=== PATIENT | female | born 1980 | race Caucasian/White ===

== ENCOUNTER 2018-01-29 06:00 | Inpatient (IN) | payer BC ==
[2018-01-29] MEDS ORDERED: TERBUTALINE SULFATE 1 MG/ML VIAL IV PRN (07:36)
[2018-01-29] MEDS ORDERED: LR 500 ML IV PRN (07:36)
[2018-01-29] MEDS ORDERED: MISOPROSTOL 200 MCG TAB PO PRN (07:36)
[2018-01-29] MEDS ORDERED: LR 1,000 ML IV PRN (07:36)
[2018-01-29] MEDS ORDERED: IBUPROFEN 600 MG TAB PO PRN (07:36)
[2018-01-29] MEDS ORDERED: OLIVE OIL 118 ML BTL MISC PRN (07:36)
[2018-01-29] MEDS ORDERED: OXYTOCIN/RINGERS LACTATE 1,000 ML IV PRN (07:36)
[2018-01-29] MEDS ORDERED: AMMONIA AROMATIC 1 EACH AMP IH PRN (07:36)
[2018-01-29] MEDS ORDERED: LIDOCAINE 1% 300 MG/30 ML SDV SC PRN (07:36)
[2018-01-29] MEDS ORDERED: EPSOM SALT 454 GM TP PRN (07:36)
[2018-01-29] MEDS ORDERED: OXYTOCIN/RINGERS LACTATE 500 ML IV SCH (07:36)
[2018-01-29 07:47] LABS: PLATELET COUNT 225 10^3/uL (150-400)
--- NOTE | 2018-01-29 10:17 | GHP ---
DATE OF ADMISSION: 01/29/2018 ADMITTING DIAGNOSIS: Intrauterine at 39-6/7 weeks' gestation for an elective induction of labor. HISTORY OF PRESENT ILLNESS: The patient is a 37-year-old 5, para 3-0-1-3 with a questionable last menstrual period of 04/28/2017, a dated by an ultrasound at 6 weeks which gave her an EDC of 02/04/2018. She has had good care at [facility] since registration at 19 weeks. She transferred from [place]. They moved there for her 's job. Her risk facto rs include advanced maternal age. She had a negative NIPT test and a level 2 ultrasound with MFM lucinda t was normal. She is rubella equivocal. No other significant risk factors. She would like an elective induction of labor. Her Soliz score was favorable when she was checked in the office. She has no contractions now. No leakage of fluid or vaginal bleeding. Has had good movement. PAST OBSTETRICAL HISTORY: In 2010 she had a missed AB at 6 weeks, had a D and C. In 2011 she had a spontaneous vaginal delivery at 41 weeks. She had an induction of labor secondary to oligo. That ba by weighed 7 pounds 4 ounces, viable female. 2013 she had a spontaneous labor at 40 weeks, a female 7 pounds 1 ounce, as vaginal delivery without complication; and in 2015 she had a viable male, 7 poun ds 12 ounces, 4 hours quick labor, no complications. PAST GYNECOLOGICAL HISTORY: Normal gynecological history. Menarche at age 15. Cycles every month. No other complications. No current contraception. No history of abnormal Paps or STD. PAST MEDICAL HISTORY: No significant medical problems except a history of depression. She does have frequent migraines. SURGICAL HISTORY: She had foot surgery in 2012, a D and C in 2010, rhinoplasty in 2004, wrist surger y in 2005, and a finger surgery in 2000. ALLERGIES: She has no known drug allergies. MEDICATIONS: Her only meds include vitamins. SOCIAL HISTORY: She lives with her , Davy, and her children. She is a [id number] mom. She denies tobacco, alcohol, and drug use. They lived in [place] until a few years ago. They moved to [place] for her 's job, and now they have moved back to [place]. FAMILY HISTORY: Her father had an AVM. Maternal aunt has rheumatoid arthritis. Maternal grandmothe r had dementia. Mother had breast cancer at age 50. Paternal grandfather had lung cancer. REVIEW OF SYSTEMS: Negative except for pertinent positives as above and normal complaints. OBJECTIVE: VITAL SIGNS: Today she is afebrile. Vital signs are stable. ABDOMEN: heart tone s are 130s, reactive, moderate variability, category I. She has irregular contractions. CERVICAL: Deferred for now. We will check her when she is in active labor. LABS: She is A positive; antibody negative; RPR nonreactive; rubella equivocal; hepatitis negative; HIV negative; cystic fibrosis, SMA, fragile X negative. Urine drug screen was negative. Pap was nor mal. Urinalysis was negative. Gonorrhea and chlamydia negative. 1-hour GTT 111. AFP was negative. Verifi was negative. GBS was negative. Patient will desire an epidural and active labor management. /[id number]/MODL
--- NOTE | 2018-01-29 12:13 | OBPROG ---
Labor Progress Note Assessment/Plan: Assessment: 37 y/o @ 39 1/7 weeks for elective IOL doing well. Plan: Pt having stronger contractions and now AROM. She will get an epidural when she is ready. status reassuring. Continue pitocin per protocol. 01/29/18 12:11 Subjective/Intrapartum Course: 01/29/18 12:09 Pt is beginning to feel stronger contractions. She walked and is now resting. Good FM. She is ready to be aggressive with her IOL. Objective: 01/29/18 07:35 Patient ABO/Rh A POSITIVE 01/29/18 07:35 - SVE Dilation (cm): 3 Effacement (%): 50 Station: -2 Membranes: AROM Amniotic Fluid Color: Clear - Contraction Pattern Assessment Current Contraction Pattern: Regular (Q 2-3) - FHR Assessment Harris FHR (bpm): 120 FHR Pattern Variability: Moderate FHR Category: 1 - Procedures Non-surgical Procedures: Amniotomy - AP Antepartum Course: 01/29/18 12:10 AMA Rubella equivocal H/o depression and PP depression Oxytocin Orders Assessment - Pre-Induction/Augmentation Assessment Gestational Age: 39 week(s) and 1 day(s) ICD10 Worksheet Patient Problems: Problems Problem Status Onset Normal spontaneous vaginal delivery Acute Ruptured membranes, prolonged Acute
--- NOTE | 2018-01-29 12:26 | PREANESOB ---
Obstetric Pre-Anesthesia Info - General Info : 5 Para: 3 SIGIFREDO: 02/04/18 Gestational Age: 39 week(s) and 1 day(s) - Info Status: Full Term - Labor Status Cervical Dilation per last OB SVE: 3 Station per last OB SVE: -2 Amniotic Fluid Color: Clear Indications for Labor Analgesia: Pain Control Labor Epidural: Proposed Anesthesia Allergies/Adverse Reactions: Allergy/AdvReac Type Severity Reaction Status Date / Time No Known Allergies Allergy Unverified 02/17/12 06:33 Home Medications: Medication Instructions Recorded 1 tab PO DAILY 09/27/13 Visit Medications: Generic Name Dose Route Start Last Admin Trade Name Freq PRN Reason Stop Dose Admin Ammonia (Aromatic Spirit) 1 each 01/29/18 07:36 Ammonia Aromatic IH 02/08/18 07:35 ONCE PRN Fainting Lactated Ringer's 1,000 mls @ 0 mls/hr 01/29/18 07:36 01/29/18 08:19 Lr IV 01/30/18 07:35 1,000 mls PRN PRN Administration SEE PROTOCOL CONDITIONS Protocol Per Protocol Oxytocin/Lactated Ringer's 1,000 mls @ 125 mls/hr 01/29/18 07:36 Pitocin 20 Units/Lr (Premix) IV PRN PRN Post bleeding Oxytocin/Lactated Ringer's 500 mls @ 0 mls/hr 01/29/18 07:36 Pitocin 30 Units/Lr (Premix) IV 07/28/18 07:35 CONT [facility] Protocol Per Protocol Fentanyl 200 mcg/ Bupivacaine 100 mls @ 0 mls/hr 01/29/18 12:30 HCl 20 ml/ Sodium Chloride EP 02/08/18 12:29 CONT [facility] Protocol As Directed Ibuprofen 600 mg 01/29/18 07:36 Motrin PO ONCE PRN post , pain Lidocaine HCl 300 mg 01/29/18 07:36 Lidocaine Hcl 1% SC 07/28/18 07:35 ONCE PRN episiotomy Magnesium Sulfate 454 gm 01/29/18 07:36 Epsom Salt TP 07/28/18 07:35 Q1H PRN perineal discomfort Misoprostol 800 - 1,000 mcg 01/29/18 07:36 Cytotec PO 07/28/18 07:35 ONCE PRN Vaginal Atony/Bleeding Sharps Oil 118 ml 01/29/18 07:36 Sweet Oil MISC 07/28/18 07:35 ONCE PRN perineal massage Terbutaline Sulfate 0.25 mg 01/29/18 07:36 Brethine IV 07/28/18 07:35 ONCE PRN Tachysystole Discontinued Medications Generic Name Dose Route Start Last Admin Trade Name Freq PRN Reason Stop Dose Admin Lactated Ringer's 500 mls @ 500 mls/hr 01/29/18 07:36 01/29/18 08:20 Lr IV 500 mls PRN PRN Administration Maternal Hypotension - Vital Signs Height/Weight (Nursing): Height 160.02 cm Weight 71.214 kg Labs: 01/29/18 07:35 Patient ABO/Rh A POSITIVE 01/29/18 07:35
--- NOTE | 2018-01-29 12:27 | PREANESOB ---
Obstetric Pre-Anesthesia Info - General Info : 5 Para: 3 SIGIFREDO: 02/04/18 Gestational Age: 39 week(s) and 1 day(s) - Labor Status Cervical Dilation per last OB SVE: 3 Station per last OB SVE: -2 Amniotic Fluid Color: Clear Anesthesia Allergies/Adverse Reactions: Allergy/AdvReac Type Severity Reaction Status Date / Time No Known Allergies Allergy Unverified 02/17/12 06:33 Home Medications: Medication Instructions Recorded 1 tab PO DAILY 09/27/13 Visit Medications: Generic Name Dose Route Start Last Admin Trade Name Freq PRN Reason Stop Dose Admin Ammonia (Aromatic Spirit) 1 each 01/29/18 07:36 Ammonia Aromatic IH 02/08/18 07:35 ONCE PRN Fainting Lactated Ringer's 1,000 mls @ 0 mls/hr 01/29/18 07:36 01/29/18 08:19 Lr IV 01/30/18 07:35 1,000 mls PRN PRN Administration SEE PROTOCOL CONDITIONS Protocol Per Protocol Oxytocin/Lactated Ringer's 1,000 mls @ 125 mls/hr 01/29/18 07:36 Pitocin 20 Units/Lr (Premix) IV PRN PRN Post bleeding Oxytocin/Lactated Ringer's 500 mls @ 0 mls/hr 01/29/18 07:36 Pitocin 30 Units/Lr (Premix) IV 07/28/18 07:35 CONT [facility] Protocol Per Protocol Fentanyl 200 mcg/ Bupivacaine 100 mls @ 0 mls/hr 01/29/18 12:30 HCl 20 ml/ Sodium Chloride EP 02/08/18 12:29 CONT [facility] Protocol As Directed Ibuprofen 600 mg 01/29/18 07:36 Motrin PO ONCE PRN post , pain Lidocaine HCl 300 mg 01/29/18 07:36 Lidocaine Hcl 1% SC 07/28/18 07:35 ONCE PRN episiotomy Magnesium Sulfate 454 gm 01/29/18 07:36 Epsom Salt TP 07/28/18 07:35 Q1H PRN perineal discomfort Misoprostol 800 - 1,000 mcg 01/29/18 07:36 Cytotec PO 07/28/18 07:35 ONCE PRN Vaginal Atony/Bleeding [place] Oil 118 ml 01/29/18 07:36 Sweet Oil MISC 07/28/18 07:35 ONCE PRN perineal massage Terbutaline Sulfate 0.25 mg 01/29/18 07:36 Brethine IV 07/28/18 07:35 ONCE PRN Tachysystole Discontinued Medications Generic Name Dose Route Start Last Admin Trade Name Freidalia PRN Reason Stop Dose Admin Lactated Ringer's 500 mls @ 500 mls/hr 01/29/18 07:36 01/29/18 08:20 Lr IV 500 mls PRN PRN Administration Maternal Hypotension - Anesthesia History Response to Local Anesthetics: Normal Anesthesia & Operative History: No Prior Problems - Social History Substance Use/Abuse: Denies - Vital Signs Height/Weight (Nursing): Height 160.02 cm Weight 71.214 kg - Focused Exam Neck exam: FROM Mallampati Score: Class 1 Mouth exam: normal dental/mouth exam Pulmonary: no respiratory distress Cardiovascular: regular rate and rhythym Labs: 01/29/18 07:35 Patient ABO/Rh A POSITIVE 01/29/18 07:35 - Plan Consent Signed and on Chart: Yes Patient/Guardian Understands and Agrees to Plan: Yes
[2018-01-29] MEDS ORDERED: BUPIVACAINE 0.25% 30 ML SDV ONE (12:29)
[2018-01-29] MEDS ORDERED: fentaNYL 100 MCG/2 ML INJ ONE (12:29)
[2018-01-29] MEDS ORDERED: fentaNYL 200 MCG, BUPIVACAINE 0.5% 20 ML in NS 100 ML EP SCH (12:30)
[2018-01-29] MEDS ORDERED: PHENYLEPHRINE HCL 100 MCG/ML SYR ONE (12:30)
[2018-01-29] MEDS ORDERED: ONDANSETRON 4 MG/2 ML VIAL ONE (13:20)
--- NOTE | 2018-01-29 14:45 | OBPROG ---
Labor Progress Note Assessment/Plan: Assessment: 37 y/o @ 39 1/7 weeks for elective IOL doing well. Plan: Pt is making slow progress. Now comfortable with her epidural, with increase pitocin again now. Did half the pitocin dose with epidural placement. status is overall reassuring. 01/29/18 12:11 01/29/18 14:43 Subjective/Intrapartum Course: 01/29/18 12:09 Pt is beginning to feel stronger contractions. She walked and is now resting. Good FM. She is ready to be aggressive with her IOL. 01/29/18 14:41 Pt is comfortable with her epidural, feeling only pressure with contractions. Objective: 01/29/18 07:35 Patient ABO/Rh A POSITIVE 01/29/18 07:35 - SVE Dilation (cm): 5 Effacement (%): 80 Station: -2 Membranes: AROM Amniotic Fluid Color: Clear - Contraction Pattern Assessment Current Contraction Pattern: Regular (Q 2-3), Irregular - FHR Assessment Harris FHR (bpm): 120 FHR Pattern Variability: Moderate FHR Category: 1 - Procedures Non-surgical Procedures: Amniotomy - AP Antepartum Course: 01/29/18 12:10 AMA Rubella equivocal H/o depression and PP depression Oxytocin Orders Assessment - Pre-Induction/Augmentation Assessment Gestational Age: 39 week(s) and 1 day(s) ICD10 Worksheet Patient Problems: Problems Problem Status Onset Normal spontaneous vaginal delivery Acute Ruptured membranes, prolonged Acute
[2018-01-29] MEDS ORDERED: DOCUSATE SODIUM 100 MG CAP PO PRN (16:51)
[2018-01-29] MEDS ORDERED: oxyCODONE IR 5 MG TAB PO PRN (16:51)
[2018-01-29] MEDS ORDERED: SIMETHICONE 80 MG TAB CHEW PO PRN (16:51)
[2018-01-29] MEDS ORDERED: HYDROCORTISONE 0.5% CREAM TP PRN (16:51)
--- NOTE | 2018-01-29 16:51 | OBDEL ---
Info Type: Vaginal Presentation at Delivery: Vertex L&D Analgesia/Anesthesia Type: Epidural GBS+: No Intrapartum Medications: Generic Name Dose Route Start Last Admin Trade Name Freq PRN Reason Stop Dose Admin Lactated Ringer's 1,000 mls @ 0 mls/hr 01/29/18 07:36 01/29/18 08:19 Lr IV 01/30/18 07:35 1,000 mls PRN PRN Administration SEE PROTOCOL CONDITIONS Protocol Per Protocol Discontinued Medications Generic Name Dose Route Start Last Admin Trade Name Freq PRN Reason Stop Dose Admin Lactated Ringer's 500 mls @ 500 mls/hr 01/29/18 07:36 01/29/18 08:20 Lr IV 500 mls PRN PRN Administration Maternal Hypotension - Hospital Course Intrapartum: 01/29/18 12:09 Pt is beginning to feel stronger contractions. She walked and is now resting. Good FM. She is ready to be aggressive with her IOL. 01/29/18 14:41 Pt is comfortable with her epidural, feeling only pressure with contractions. Indications for Delivery: Elective Vaginal Delivery - Delivery Provider Delivery Physician/CNM: Fabiola Valadez - Labor and Delivery Onset of Contractions Date: 01/29/18 Onset of Contractions Time: 12:00 Onset of Contractions Type: Induced Rupture of Membranes Date: 01/29/18 Rupture of Membranes Time: 12:00 Rupture of Membranes Type: Artificial Amniotic Fluid Color: Clear Dilation Complete Date: 01/29/18 Dilation Complete Time: 16:00 Placenta Delivery Date: 01/29/18 Placenta Delivery Time: 16:37 Total Hours of Labor: 4 Non-surgical Procedures: Amniotomy Laceration: 1st Degree Repair: 3-0, Vicryl Vaginal Sponge Count Correct: Yes Vaginal Needle Count Correct: Yes Vaginal Sweep Performed: Yes EBL: 250 Delivery Events: Nuchal Cord (shoulder cord) - Medications Labor Augmentation/Induction Methods Used: Pitocin Labor Augmentation/Induction Indication: Elective [place]lass Data SIGIFREDO: 02/04/18 Gestational Age: 39 week(s) and 1 day(s) Harris Delivery Date: 01/29/18 Delivery Time: 16:31 Sex of : Male Score (1 Min): 8 Score (5 Min): 9 ICD10 Worksheet Patient Problems: Problems Problem Status Onset Normal spontaneous vaginal delivery Acute Ruptured membranes, prolonged Acute
[2018-01-29] MEDS: ACETAMINOPHEN 325 MG TAB PO SCH (19:52)
[2018-01-29] MEDS: IBUPROFEN 600 MG TAB PO SCH (23:13)
[2018-01-30] MEDS: ACETAMINOPHEN 325 MG TAB PO SCH ×3 (02:18→13:45)
[2018-01-30] MEDS: IBUPROFEN 600 MG TAB PO SCH ×3 (06:53→17:29)
--- NOTE | 2018-01-30 08:08 | POSTANESTH ---
Post Anesthetic Evaluation Cardiovascular Status: Normal, Stable Respiratory Status: Normal, Stable Level of Consciousness/Mental Status: Can Participate in Eval Pain Control: Adequate, Prn Tx Ordered Nausea/Vomiting Control: Adequate, Prn Tx Ordered Complications Possibly Related to Anesthesia: Other, See Comments (No headache doing well. Plan DC home)
--- NOTE | 2018-01-30 13:18 | OBPP ---
Progress Note Assessment/Plan: Assessment: 1) s/p PPD #1 - pt is stable 2) Anemia - pt is asymptomatic Plan: Continue routine pp care Plan for d/c later today after 24 hrs Instructions reviewed with pt No Rx given Cont PNV, iron and colace Pelvic rest RTC in 4 weeks for mood check and 6 weeks for pp check 01/30/18 13:14 Subjective/ Course: 01/30/18 13:18 Pt seen and examined. Doing well with no complaints. Mild cramping, noted suresh. when baby boy latches. Mod lochia. Pt is OOB, maynor regular diet, voiding and passing flatus. BF well without difficulty. She wants to go home later this evening. Objective: 01/29/18 07:35 Patient ABO/Rh A POSITIVE 01/29/18 07:35 Temp Pulse Resp BP Pulse Ox 36.7 C 87 18 117/79 94 01/30/18 08:45 01/30/18 08:45 01/30/18 08:45 01/30/18 08:45 01/30/18 08:45 Uterine Position/Fundal Height: Umbilicus -2 Uterine Tone: Firm Physical Exam - Physical Exam General Appearance: WD/WN, alert, no apparent distress Respiratory: lungs clear, normal breath sounds Cardiac/Chest: regular rate, rhythm Abdomen: normal bowel sounds, non-tender, soft, flatus (+) Extremities: non-tender, normal inspection Skin: normal color, warm/dry Neuro/Psych: alert, normal mood/affect, oriented x 3
--- NOTE | 2018-01-30 13:21 | OBGCSDC ---
General Delivery Information - General Info : 5 Para: 4 Abortions: 1 Type: Vaginal L&D Analgesia/Anesthesia Type: Epidural, Local Admission Date: 01/29/18 Labs: Patient ABO/Rh A POSITIVE 01/29/18 07:35 Hct 35.0 % (38.0-47.0) L 01/29/18 07:35 - Hospital Course Antepartum: 01/29/18 12:10 AMA Rubella equivocal H/o depression and PP depression Intrapartum: 01/29/18 12:09 Pt is beginning to feel stronger contractions. She walked and is now resting. Good FM. She is ready to be aggressive with her IOL. 01/29/18 14:41 Pt is comfortable with her epidural, feeling only pressure with contractions. : 01/30/18 13:18 Pt seen and examined. Doing well with no complaints. Mild cramping, noted suresh. when baby boy latches. Mod lochia. Pt is OOB, maynor regular diet, voiding and passing flatus. BF well without difficulty. She wants to go home later this evening. Vaginal - Delivery Provider Delivery Physician/CNM: Fabiola Valadez - Diagnosis Labor: Induced Rupture of Membranes Type: Artificial Amniotic Fluid Color: Clear Laceration: 1st Degree Repair: 3-0, Vicryl Delivery Events: Nuchal Cord (shoulder cord) - Procedures Non-surgical Procedures: Amniotomy - Delivery Non-surgical Procedures: Amniotomy EBL: 250 Data SIGIFREDO: 02/04/18 Gestational Age: 39 week(s) and 2 day(s) Harris Delivery Date: 01/29/18 Delivery Time: 16:31 Sex of Infant: Male Score (1 Min): 8 Score (5 Min): 9 Discharge Information - Discharge Information Condition: Good Instruction/Follow Up: Four Weeks, Six Weeks
[2018-01-30 17:31] VITALS: BP 111/68
== END 2018-01-30 17:25 | disposition home or self-care (01) | DRG 807 ==
LOC: FLD 07:01 → FOB 20:01
PROVIDERS: ADMIT Obstetrics & Gynecology; ATTEND Obstetrics & Gynecology
DX: O70.0 First degree perineal laceration during delivery (principal); O69.82X0 Labor and delivery complicated by other cord entanglement, without compression, not applicable or unspecified; Z3A.39 39 weeks gestation of pregnancy; Z37.0 Single live birth
CPT/HCPCS: J2370; J2405; J2590; J3010; J3105